=== PATIENT | male | born 1960 | race African-American/Black ===

== ENCOUNTER 2016-09-25 12:40 | Emergency (ER) | payer MEDICAID, MEDICARE ==
[~2016-09-25] VITALS: Ht 180.3 cm; Wt 79.7 kg
[~2016-09-25 12:40] MED LIST: ALBU18HF INH; ALBU25PO2 NS; DOCU100C8 PO; HYDR-202 PO; HYDR-838 PO; LINE600T37 PO; METH500T97 PO; NAPR250T PO; ONDA4TAB10 PO; OXYC-223 PO; PRED20TA PO; SULF1TAB24 PO; TRAZ100T15 PO; TRAZODONE PO
[2016-09-25 13:38] LABS: HEMOGLOBIN 12.9 g/dL (13.7-18.0)
[2016-09-25 13:47] LABS: ASPARTATE AMINO TRANSFERASE 30 U/L (15-37); BLOOD UREA NITROGEN 14 mg/dL (7-18)
[2016-09-25] MEDS ORDERED: ONDANSETRON 2MG/ML, 2ML ONE (13:51)
[2016-09-25] MEDS ORDERED: MORPHINE SULFATE 4 MG/ML, 1ML ONE (13:51)
[2016-09-25 13:52] LABS: IS PT STATUS REG ER OR PRE ER? YES
[2016-09-25] MEDS ORDERED: SODIUM CHLORIDE FLUSH 10ML SYR IVF ONE (14:00)
[2016-09-25] MEDS ORDERED: MORPHINE SULFATE 4 MG/ML, 1ML IVPush PRN (14:00)
[2016-09-25] MEDS ORDERED: ONDANSETRON 2MG/ML, 2ML IVPush ONE (14:00)
[2016-09-25 15:01] VITALS: BP 147/80
== END 2016-09-25 15:03 | disposition home or self-care (01) ==
LOC: ED 13:36
DX: R07.89 Other chest pain (principal); K40.91 Unilateral inguinal hernia, without obstruction or gangrene, recurrent; J45.909 Unspecified asthma, uncomplicated
CPT/HCPCS: 36415; 71010; 76857; 80053; 84484; 85025; 85610; 85730; 93005; 96374; 96375; 99285; J2405

== ENCOUNTER → 2016-11-10 | Outpatient (CLI) | payer MEDICAID ==
[~2016-11-10] VITALS: Ht 180.3 cm; Wt 76.0 kg
[~2016-11-10] MED LIST changes: +ALBU1.25 NEB; +ALBUTEROL SULFATE 2.5 MG/3 ML NPPB STA; +ALBUTEROL SULFATE 2.5 MG/3 ML ONE; +ATOR20TA9 PO; +BUPIVACAINE/PF-EPI 0.5% 1:200K ONE; +FENTANYL PF 250 MCG/5ML ONE; +HYDR-879 PO; +LACTATED RINGERS 1,000 ML IV SCH; +MIDAZOLAM 1 MG/ML, 2ML ONE; +aspirin
[2016-11-10 14:49] VITALS: BP 146/98
== END | disposition home or self-care (01) ==
LOC: OR 14:17 → EDSTATUS 16:00
PROVIDERS: ATTEND Surgery
DX: Z01.818 Encounter for other preprocedural examination (principal); K40.90 Unilateral inguinal hernia, without obstruction or gangrene, not specified as recurrent
CPT/HCPCS: 94640; J2250; J3010; J7613

== ENCOUNTER 2016-11-16 11:22 | Day surgery (SDC) | payer MEDICAID ==
[~2016-11-16] VITALS: Ht 180.3 cm; Wt 76.0 kg
[~2016-11-16 11:22] MED LIST changes: -ALBU1.25 NEB; -ALBUTEROL SULFATE 2.5 MG/3 ML NPPB STA; -ALBUTEROL SULFATE 2.5 MG/3 ML ONE; -FENTANYL PF 250 MCG/5ML ONE; -LACTATED RINGERS 1,000 ML IV SCH; -MIDAZOLAM 1 MG/ML, 2ML ONE
[2016-11-16 11:57] VITALS: BP 132/84
[2016-11-16] MEDS ORDERED: ALBU1.25 NEB (12:04)
[2016-11-16] MEDS ORDERED: LACTATED RINGERS 1,000 ML IV SCH (12:04)
[2016-11-16] MEDS ORDERED: LIDOCAINE 1%, 2ML ONE (12:10)
[2016-11-16] MEDS ORDERED: LIDOCAINE 1%, 2ML SQ PRN (12:30)
[2016-11-16] MEDS ORDERED: FENTANYL PF 100 MCG/2ML ONE (13:25)
[2016-11-16] MEDS ORDERED: ONDANSETRON 2MG/ML, 2ML ONE (13:27)
[2016-11-16] MEDS ORDERED: DEXAMETHASONE 4 MG/ML, 1ML ONE (13:27)
[2016-11-16] MEDS ORDERED: PROPOFOL 10 MG/ML, 20ML ONE (13:27)
[2016-11-16] MEDS ORDERED: CEFAZOLIN 1,000 MG ONE (13:27)
[2016-11-16] MEDS ORDERED: KETOROLAC 30 MG/1 ML ONE (13:27)
[2016-11-16] MEDS ORDERED: METOCLOPRAMIDE 5 MG/ML, 2ML ONE (13:27)
[2016-11-16] MEDS ORDERED: FENTANYL PF 100 MCG/2ML IV PRN (14:00)
[2016-11-16] MEDS ORDERED: LABETALOL 5MG/ML, 20ML IV PRN (14:00)
[2016-11-16] MEDS ORDERED: MEPERIDINE/PF 25MG/0.5ML IVPush PRN (14:00)
[2016-11-16] MEDS ORDERED: ONDANSETRON 2MG/ML, 2ML IVPush PRN (14:00)
[2016-11-16] MEDS ORDERED: hydrALAzine 20 MG/ML, 1ML IV PRN (14:00)
[2016-11-16] MEDS ORDERED: PROMETHAZINE 25 MG/ML, 1ML IV PRN (14:00)
[2016-11-16] MEDS ORDERED: MIDAZOLAM 1 MG/ML, 2ML IV PRN (14:00)
[2016-11-16] MEDS ORDERED: HYDROmorphone 1 MG/ML, 1ML IV PRN (14:00)
[2016-11-16] MEDS ORDERED: OXYcodone 5 MG/5 ML ORAL.SOL UDC PO PRN (14:00)
[2016-11-16] MEDS ORDERED: OXYcodone 5 MG/5 ML ORAL.SOL UDC ONE (14:52)
[2016-11-16] MEDS ORDERED: OXYcodone/APAP 5/325MG TABLET ONE (17:19)
[2016-11-16] MEDS ORDERED: OXYcodone/APAP 5/325MG TABLET PO PRN (17:30)
== END 2016-11-16 17:45 | disposition home or self-care (01) ==
LOC: OUT 11:22
PROVIDERS: ATTEND Surgery
DX: K40.90 Unilateral inguinal hernia, without obstruction or gangrene, not specified as recurrent (principal); D17.6 Benign lipomatous neoplasm of spermatic cord; J45.909 Unspecified asthma, uncomplicated; Z86.14 Personal history of Methicillin resistant Staphylococcus aureus infection; Z88.0 Allergy status to penicillin; I25.10 Atherosclerotic heart disease of native coronary artery without angina pectoris; Z90.81 Acquired absence of spleen; Z90.49 Acquired absence of other specified parts of digestive tract; Z72.89 Other problems related to lifestyle; Z87.891 Personal history of nicotine dependence; Z80.42 Family history of malignant neoplasm of prostate
CPT/HCPCS: 49505; C1781; J0690; J1100; J1885; J2405; J2704; J2765; J3010; J3490; J7120

== ENCOUNTER 2017-10-20 00:49 | Emergency (ER) | payer MEDICAID ==
[~2017-10-20] VITALS: Ht 180.3 cm; Wt 80.0 kg
[~2017-10-20 00:49] MED LIST changes: +ALBU1.25 NEB; -BUPIVACAINE/PF-EPI 0.5% 1:200K ONE; +DOCU100C33 PO; -DOCU100C8 PO; -OXYC-223 PO; +OXYC-306 PO
[2017-10-20] MEDS ORDERED: ALBUTEROL/IPRATROPIUM 2.5MG/0.5MG, 3 ML ONE (00:55)
[2017-10-20] MEDS: ALBUTEROL/IPRATROPIUM 2.5MG/0.5MG, 3 ML NPPB SCH (00:55)
[2017-10-20] MEDS ORDERED: methylPREDNISolone SOD SUCC 125 MG/2 ML ONE (00:57)
[2017-10-20] MEDS ORDERED: SODIUM CHLORIDE 0.9% 1,000ML IVBOLUS ONE (01:00)
[2017-10-20] MEDS ORDERED: methylPREDNISolone SOD SUCC 125 MG/2 ML IVP ONE (01:00)
[2017-10-20 01:16] LABS: BASOPHILS # (AUTO) 0.02 x10^3/uL (0-0.1); BASOPHILS % (AUTO) 0 % (0-1); EOSINOPHILS # (AUTO) 0.33 x10^3/uL (0-0.4); EOSINOPHILS % (AUTO) 4 % (1-7); LYMPHOCYTES # (AUTO) 1.12 x10^3/uL (1-3.4); LYMPHOCYTES % (AUTO) 15 % (22-44); MD NO; MEAN CORPUSCULAR HEMOGLOBIN 21.9 pg (27.5-34.5); MEAN CORPUSCULAR HGB CONC 31.1 g/dL (33.2-36.2); MEAN CORPUSCULAR VOLUME 70.2 fL (81-97); MONOCYTES # (AUTO) 0.26 x10^3/uL (0.2-0.8); MONOCYTES % (AUTO) 4 % (2-9); NEUTROPHILS # (AUTO) 5.77 x10^3/uL (1.8-6.8); NEUTROPHILS % (AUTO) 77 % (42-75); PLATELET COUNT 273 x10^3/uL (130-400); RED BLOOD COUNT 5.48 x10^6/uL (4.38-5.82); RED CELL DISTRIBUTION WIDTH 16.5 % (9.4-14.8)
[2017-10-20 01:27] LABS: ALBUMIN 3.8 g/dL (3.4-5.0); ANION GAP 8 mmol/L (5-15); CALCIUM 8.8 mg/dL (8.5-10.1); CHLORIDE 109 mmol/L (98-107); CREATININE 1.05 mg/dL (0.7-1.3)
[2017-10-20] MEDS ORDERED: qvar (01:46)
[2017-10-20 03:29] VITALS: BP 134/91
== END 2017-10-20 03:35 | disposition home or self-care (01) ==
LOC: ED 01:08
DX: J45.41 Moderate persistent asthma with (acute) exacerbation (principal); E78.5 Hyperlipidemia, unspecified
CPT/HCPCS: 36415; 71045; 80048; 82040; 83605; 85025; 87040; 93005; 94640; 96374; 99285; J2930; J7030; J7620